=== PATIENT | male | born 1995 | race African-American/Black ===

== ENCOUNTER 2024-02-07 22:19 | Emergency (ER) | payer OTHER ==
[~2024-02-07] VITALS: Ht 182.9 cm; Wt 100.0 kg
[2024-02-07 22:27] VITALS: BP 148/78; PULSE 80; RESP 18; TEMP 98.6; O2SAT 98
== END 2024-02-07 23:57 | disposition home or self-care (01) ==
LOC: EMS 22:19
DX: A60.02 Herpesviral infection of other male genital organs (principal); B02.9 Zoster without complications; Z65.3 Problems related to other legal circumstances
CPT/HCPCS: 99283; Z7502

== ENCOUNTER 2024-02-08 10:33 | Emergency (ER) | payer OTHER ==
[~2024-02-08] VITALS: Ht 182.9 cm; Wt 110.0 kg
[2024-02-08 11:36] VITALS: TEMP 98.3
[2024-02-08 16:00] VITALS: BP 133/88; PULSE 83; RESP 16; O2SAT 98
== END 2024-02-08 16:01 | disposition home or self-care (01) ==
LOC: EMS 11:09
DX: Z02.89 Encounter for other administrative examinations (principal); F17.210 Nicotine dependence, cigarettes, uncomplicated; F12.90 Cannabis use, unspecified, uncomplicated
CPT/HCPCS: 74018; 74176; 99284